=== PATIENT | male | born 1995 | race Caucasian/White ===

== ENCOUNTER 2024-08-03 07:49 | Emergency (ER) | payer BC, MEDICAID ==
[2024-08-03 08:00] VITALS: TEMP 96.8
[2024-08-03] MEDS ORDERED: Lactated Ringers 1,000 ML IV ONE (08:03)
[2024-08-03] MEDS ORDERED: MORPHINE SULFATE 4 MG INJ ONE (08:03)
[2024-08-03] MEDS ORDERED: Zofran 4 MG/2 ML VIAL ONE (08:03)
[2024-08-03] MEDS: MORPHINE SULFATE 4 MG INJ IV ONE (08:06)
[2024-08-03] MEDS: Lactated Ringers 1,000 ML IV ONE (08:06)
[2024-08-03] MEDS: Zofran 4 MG/2 ML VIAL IV ONE (08:07)
[2024-08-03 08:11] LABS: Absolute Neutrophil Ct (ANC) 12.24 x10^3/uL (1.78-5.38); BASOPHIL % 0.3 % (0.2-1.2); Basophil (Absolute #) 0.05 x10^3/uL (0.01-0.08); Eosinophil % 0.1 % (0.8-7.0); Eosinophil (Absolute #) 0.02 x10^3/uL (0.04-0.54); Hematocrit 47.3 % (40.1-51.0); Hemoglobin 16.9 g/dL (13.7-17.5); IMMATURE GRAN # 0.05 x10^3u/L (0.001-0.031); IMMATURE GRAN % 0.3 % (0.001-0.429); Lymphocyte (Absolute #) 2.86 x10^3/uL (1.32-3.57); Lymphocytes % 17.9 % (21.8-53.1); Mean Cell Volume 85.7 fL (79.0-92.2); Mean Corpuscular Hemoglobin 30.6 pg (25.7-32.2); Mean Corpuscular Hgb Concent. 35.7 g/dL (32.3-36.5); Mean Platelet Volume 9.6 fL (9.4-12.4); Monocyte (Absolute #) 0.77 x10^3/uL (0.30-0.82); Monocytes % 4.8 % (5.3-12.2); Neutrophil % 76.6 % (34.0-67.9); Platelet Count 307 x10^3/uL (163-337); Red Blood Count 5.52 x10^6/uL (4.63-6.08); Red Cell Distribution Width 11.7 % (11.6-14.4)
[2024-08-03 08:26] LABS: ALBUMIN 4.5 g/dL (3.5-5.0); ANION GAP 17.9 MEQ/L (5-15); BILIRUBIN,TOTAL 0.9 mg/dL (0.2-1.3); Creatinine 1 1.01 mg/dL (0.66-1.25); EST GLOMERULAR FILTRATION RATE 104.5 ML/MIN; Potassium 3.8 mmol/L (3.5-5.1); Total Protein 7.4 g/dL (6.3-8.2)
--- NOTE | 2024-08-03 08:28 | ERPHSYRPT ---
- History of Present Illness Time Seen by Provider: 08/03/24 08:19 Historian: patient Exam Limitations: no limitations Patient Subjective Stated Complaint: pt here for right sided abd pain started this morning with n/v, no fever, had bm today Triage Nursing Assessment: pt alert, walked in, resp easy. skin w/d/p. abd soft, restless at times, no edema noted Physician History: Patient is 28-year-old male without any significant past medical history came to the emergency room with right lower quadrant abdominal pain which started at around 2:00 in the morning. It gradually got worse that patient came to the emergency room at around 8:00 in the morning. Patient is also complaining of nausea and vomiting but denies any diarrhea and has last regular bowel movement hour ago. Pain is more in cramping nature in right lower quadrant not radiating anywhere. Patient thought that he probably ate something wrong and that might be causing it but his pain started getting worse so he came to the emergency room. Timing/Duration: today Activities at Onset: none Quality: cramping Abdominal Pain Onset Location: RLQ Pain Radiation: no radiation Severity of Pain-Max: moderate Severity of Pain-Current: severe Modifying Factors: Improves With: nothing Associated Symptoms: nausea, vomiting Previous symptoms: no prior history Body Map: 1 - area of pain Allergies/Adverse Reactions: No Known Drug Allergies Allergy (Unverified 08/03/24 07:53) Hx Tetanus, Diphtheria Vaccination/Date Given: No Hx Influenza Vaccination/Date Given: No Hx Pneumococcal Vaccination/Date Given: No Immunizations Up to Date: Yes Travel Risk - International Travel Have you traveled outside of the country in past 3 weeks: No - Emerging Infectious Disease Are you exhibiting symptoms associated with any current EIDs: Yes Symptoms: Abdominal Pain - Review of Systems Constitutional: No Fever, No Chills Eyes: No Symptoms Ears, Nose, & Throat: No Symptoms Respiratory: No Cough, No Dyspnea Cardiac: No Chest Pain, No Edema, No Syncope Abdominal/Gastrointestinal: Abdominal Pain, Nausea, Vomiting, No Diarrhea Genitourinary Symptoms: No Dysuria Musculoskeletal: No Back Pain, No Neck Pain Skin: No Rash Neurological: No Dizziness, No Focal Weakness, No Sensory Changes Psychological: No Symptoms Endocrine: No Symptoms All Other Systems: Reviewed and Negative - Past Medical History Pertinent Past Medical History: No - Past Surgical History Past Surgical History: Yes Other Surgical History: wisdom teeth - Social History Smoking Status: Never smoker Exposure to second hand smoke: No Drug Use: none - Social Determinants of Health Will the patient participate in the screening: Declined to provide - Nursing Vital Signs Nursing Vital Signs: Initial Vital Signs Temperature 96.8 F 08/03/24 07:59 Pulse Rate 72 08/03/24 07:59 Respiratory Rate 18 08/03/24 07:59 Blood Pressure 177/100 08/03/24 07:59 O2 Sat by Pulse Oximetry 99 08/03/24 07:59 Pain Scale Pain Intensity 6 - Physical Exam General Appearance: no apparent distress, alert Eye Exam: PERRL/EOMI, eyes nml inspection Ears, Nose, Throat Exam: normal ENT inspection, pharynx normal, moist mucous membranes Neck Exam: normal inspection, non-tender, supple, full range of motion Respiratory Exam: normal breath sounds, lungs clear, No respiratory distress Cardiovascular Exam: regular rate/rhythm, normal heart sounds Gastrointestinal/Abdomen Exam: soft, tenderness (RLQ), guarding, No mass Male Genitalia Exam: normal genitalia Back Exam: normal inspection, normal range of motion, No CVA tenderness, No vertebral tenderness Extremity Exam: normal inspection, normal range of motion, pelvis stable Neurologic Exam: alert, oriented x 3, cooperative, normal mood/affect, nml cerebellar function, sensation nml, No motor deficits Skin Exam: normal color, warm, dry SpO2 Interpretation: normal SpO2: 99 O2 Delivery: Room Air - Course Nursing assessment & vital signs reviewed: Yes EKG Interpreted by Me: Non-specific ST Changes Rhythm Strip: Normal Sinus Rhythm - CT Exams Abdomen/Pelvis CT Interpretation: Tele-radiologist Report (right mid ureteric stone 5 mm) Ordered Tests: Active Orders 24 hr Category Date Time Status ABDOMEN AND PELVIS W CONTRAST [CT] Stat Exams 08/03/24 08:00 Completed AMYLASE Stat Lab 08/03/24 08:09 Completed CBC W DIFF Stat Lab 08/03/24 08:09 Completed CMP Stat Lab 08/03/24 08:09 Completed CULTURE,URINE Stat Lab 08/03/24 09:34 Received LIPASE Stat Lab 08/03/24 08:09 Completed Lactic Acid Stat Lab 08/03/24 07:59 Completed Lactic Acid Stat Lab 08/03/24 10:36 Received UA W/RFX UR CULTURE Stat Lab 08/03/24 09:34 Completed Urine Triage Profile Stat Lab 08/03/24 09:34 Completed Medication Summary Discontinued Medications Generic Name Dose Route Start Last Admin Trade Name Xochilt PRN Reason Stop Dose Admin Fentanyl Citrate 100 mcg 08/03/24 08:29 08/03/24 08:35 Fentanyl Citrate 100 Mcg/2 Ml* Vial IV 08/03/24 08:30 100 mcg STAT ONE Administration Fentanyl Citrate Confirm 08/03/24 08:34 Fentanyl Citrate 100 Mcg/2 Ml* Vial Administered 08/03/24 08:35 Dose 100 mcg .ROUTE .STK-MED ONE Lactated Ringer's 1,000 mls @ 999 mls/hr 08/03/24 07:59 08/03/24 09:32 Lactated Ringers IV 08/03/24 08:59 Infused .Q1H1M ONE Infusion Lactated Ringer's Confirm 08/03/24 08:03 Lactated Ringers Administered 08/03/24 08:04 Dose 1,000 mls @ ud IV .STK-MED ONE Cefazolin Sodium 2 gm in 100 mls @ 200 mls/hr 08/03/24 08:36 08/03/24 10:10 Cefazolin 2 Gm/100 Ml Nacl IV 08/03/24 09:05 Infused STAT STA Infusion Cefazolin Sodium Confirm 08/03/24 09:05 Cefazolin 2 Gm/100 Ml Nacl Administered 08/03/24 09:06 Dose 2 gm in 100 mls @ ud IV .STK-MED ONE Ketorolac Tromethamine 30 mg 08/03/24 10:38 08/03/24 10:45 Ketorolac Tromethamine 30 Mg/Ml Inj IV 08/03/24 10:39 30 mg STAT ONE Administration Ketorolac Tromethamine Confirm 08/03/24 10:44 Ketorolac Tromethamine 30 Mg/Ml Inj Administered 08/03/24 10:45 Dose 30 mg .ROUTE .STK-MED ONE Morphine Sulfate 4 mg 08/03/24 07:59 08/03/24 08:06 Morphine Sulfate 4 Mg/Ml Injection IV 08/03/24 08:00 4 mg STAT ONE Administration Morphine Sulfate Confirm 08/03/24 08:03 Morphine Sulfate 4 Mg/Ml Injection Administered 08/03/24 08:04 Dose 4 mg .ROUTE .STK-MED ONE Ondansetron HCl 4 mg 08/03/24 07:59 08/03/24 08:07 Ondansetron Hcl 4 Mg/2 Ml Vial IV 08/03/24 08:00 4 mg STAT ONE Administration Ondansetron HCl Confirm 08/03/24 08:03 Ondansetron Hcl 4 Mg/2 Ml Vial Administered 08/03/24 08:04 Dose 4 mg .ROUTE .STK-MED ONE Lab/Rad Data: Laboratory Result Diagrams 08/03/24 08:09 08/03/24 08:09 Laboratory Results 08/03/24 08/03/24 08/03/24 Range/Units 09:34 09:34 08:09 WBC (4.23-9.07) x10^3/uL RBC (4.63-6.08) x10^6/uL Hgb (13.7-17.5) g/dL Hct (40.1-51.0) % MCV (79.0-92.2) fL MCH (25.7-32.2) pg MCHC (32.3-36.5) g/dL RDW (11.6-14.4) % Plt Count (163-337) x10^3/uL MPV (9.4-12.4) fL Gran % (34.0-67.9) % Immature Gran % (Auto) (0.001-0.429) % Nucleat RBC Rel Count (0.00-0.2) % Eos # (Auto) (0.04-0.54) x10^3/uL Immature Gran # (Auto) (0.001-0.031) x10^3u/L Absolute Lymphs (auto) (1.32-3.57) x10^3/uL Absolute Monos (auto) (0.30-0.82) x10^3/uL Absolute Nucleated RBC (0.00-0.012) x10^3u/L Lymphocytes % (21.8-53.1) % Monocytes % (5.3-12.2) % Eosinophils % (0.8-7.0) % Basophils % (0.2-1.2) % Absolute Granulocytes (1.78-5.38) x10^3/uL Basophils # (0.01-0.08) x10^3/uL Sodium 141 (135-145) mmol/L Potassium 3.8 (3.5-5.1) mmol/L Chloride 106 (98-107) mmol/L Carbon Dioxide 21 L (22-30) mmol/L Anion Gap 17.9 H (5-15) MEQ/L BUN 18 (9-20) mg/dL Creatinine 1.01 (0.66-1.25) mg/dL Estimated GFR 104.5 ML/MIN Glucose 164 H (74-106) mg/dL Lactic Acid (0.4-2.0) Calcium 10.0 (8.4-10.2) mg/dL Total Bilirubin 0.90 (0.2-1.3) mg/dL AST 86 H (17-59) U/L ALT 149 H (0-50) U/L Alkaline Phosphatase 120 (38-126) U/L Serum Total Protein 7.4 (6.3-8.2) g/dL Albumin 4.5 (3.5-5.0) g/dL Amylase 67 (30-110) U/L Lipase 149 (23-300) U/L Urine Color Yellow (Yellow) Urine Appearance Clear (Clear) Urine pH 6.5 (4.6-8.0) Ur Specific [place] >=1.030 A (1.005-1.030) Urine Protein Negative (Negative) Urine Glucose (UA) 250 A (Negative) mg/dL Urine Ketones 40 A (Negative) Urine Blood Large A (Negative) Urine Nitrite Negative (Negative) Urine Bilirubin Negative (Negative) Urine Urobilinogen 0.2 (0.2) mg/dL Ur Leukocyte Esterase Negative (Negative) U Hyaline Cast (Auto) NONE SEEN (0-2) /LPF Urine Microscopic RBC 21-50 A (0-5) /HPF Urine Microscopic WBC 0-2 (0-5) /HPF Ur Epithelial Cells None Seen (None Seen) /HPF Urine Bacteria None Seen (None Seen) /HPF Urine Culture Reflexed YES (NO) Urine Opiates Level POSITIVE A (NEGATIVE) Ur Methadone NEGATIVE (NEGATIVE) Urine Barbiturates NEGATIVE (NEGATIVE) Ur Phencyclidine (PCP) NEGATIVE (NEGATIVE) Urine Amphetamine NEGATIVE (NEGATIVE) U Benzodiazepine Level NEGATIVE (NEGATIVE) Urine Cocaine NEGATIVE (NEGATIVE) Urine Marijuana (THC) NEGATIVE (NEGATIVE) 08/03/24 08/03/24 Range/Units 08:09 07:59 WBC 16.0 H (4.23-9.07) x10^3/uL RBC 5.52 (4.63-6.08) x10^6/uL Hgb 16.9 (13.7-17.5) g/dL Hct 47.3 (40.1-51.0) % MCV 85.7 (79.0-92.2) fL MCH 30.6 (25.7-32.2) pg MCHC 35.7 (32.3-36.5) g/dL RDW 11.7 (11.6-14.4) % Plt Count 307 (163-337) x10^3/uL MPV 9.6 (9.4-12.4) fL Gran % 76.6 H (34.0-67.9) % Immature Gran % (Auto) 0.3 (0.001-0.429) % Nucleat RBC Rel Count 0.0 (0.00-0.2) % Eos # (Auto) 0.02 L (0.04-0.54) x10^3/uL Immature Gran # (Auto) 0.05 H (0.001-0.031) x10^3u/L Absolute Lymphs (auto) 2.86 (1.32-3.57) x10^3/uL Absolute Monos (auto) 0.77 (0.30-0.82) x10^3/uL Absolute Nucleated RBC 0.00 (0.00-0.012) x10^3u/L Lymphocytes % 17.9 L (21.8-53.1) % Monocytes % 4.8 L (5.3-12.2) % Eosinophils % 0.1 L (0.8-7.0) % Basophils % 0.3 (0.2-1.2) % Absolute Granulocytes 12.24 H (1.78-5.38) x10^3/uL Basophils # 0.05 (0.01-0.08) x10^3/uL Sodium (135-145) mmol/L Potassium (3.5-5.1) mmol/L Chloride (98-107) mmol/L Carbon Dioxide (22-30) mmol/L Anion Gap (5-15) MEQ/L BUN (9-20) mg/dL Creatinine (0.66-1.25) mg/dL Estimated GFR ML/MIN Glucose (74-106) mg/dL Lactic Acid 3.0 H (0.4-2.0) Calcium (8.4-10.2) mg/dL Total Bilirubin (0.2-1.3) mg/dL AST (17-59) U/L ALT (0-50) U/L Alkaline Phosphatase (38-126) U/L Serum Total Protein (6.3-8.2) g/dL Albumin (3.5-5.0) g/dL Amylase (30-110) U/L Lipase (23-300) U/L Urine Color (Yellow) Urine Appearance (Clear) Urine pH (4.6-8.0) Ur Specific [place] (1.005-1.030) Urine Protein (Negative) Urine Glucose (UA) (Negative) mg/dL Urine Ketones (Negative) Urine Blood (Negative) Urine Nitrite (Negative) Urine Bilirubin (Negative) Urine Urobilinogen (0.2) mg/dL Ur Leukocyte Esterase (Negative) U Hyaline Cast (Auto) (0-2) /LPF Urine Microscopic RBC (0-5) /HPF Urine Microscopic WBC (0-5) /HPF Ur Epithelial Cells (None Seen) /HPF Urine Bacteria (None Seen) /HPF Urine Culture Reflexed (NO) Urine Opiates Level (NEGATIVE) Ur Methadone (NEGATIVE) Urine Barbiturates (NEGATIVE) Ur Phencyclidine (PCP) (NEGATIVE) Urine Amphetamine (NEGATIVE) U Benzodiazepine Level (NEGATIVE) Urine Cocaine (NEGATIVE) Urine Marijuana (THC) (NEGATIVE) CLINICAL HISTORY: Right lower quadrant abdominal pain COMPARISON: None. TECHNIQUE: Contrast-enhanced CT of the abdomen and pelvis was performed, with the following protocol: axial images with, and reconstructed coronal and sagittal images. Intravenous contrast was administered. One of the following dose reduction techniques was utilized for this exam: Automated exposure control, adjustment of the mA and/or kV according to patient size, and use of iterative reconstruction. FINDINGS: Abdomen: Liver: Enlarged liver, measures 18.7 cm, with fatty parenchyma. No focal lesions, cysts, or masses were identified. Hepatic vasculature and biliary ducts are unremarkable. Gallbladder and Biliary System: The gallbladder is normal in size and shape. No wall thickening, pericholecystic fluid, or gallstones were identified. The common bile duct is normal in caliber without dilation. Pancreas: PatientID: [id number] Patient Name: DMITRY LUNDBERG Exam Date: 08/03/2024 Procedure: ABDOMEN AND PELVIS W CONTRAST page 1 of 3 Pancreatic head, body, and tail are visualized and appear normal in size and density. No pancreatic masses or calcifications were noted. The pancreatic duct is not dilated. Spleen: Normal in size, shape, and density. No splenic lesions or masses were identified. Kidneys and Adrenal Glands: Obstructive calculus of 5 mm size (HU 450) in right mid ureter at L3 vertebral level and causing upstream mild hydroureteronephrosis. Mild periureteric fat stranding seen. Both kidneys are normal in size, shape, and position. Cortical thickness is within normal limits. No renal calculi. Adrenal glands are unremarkable with no evidence of masses or hyperplasia. Pelvis: Urinary Bladder: Normal in contour and wall thickness. No intraluminal lesions identified. Prostate: Normal in size and contour. No focal lesions or masses identified. Seminal Vesicles: Normal in size and appearance. No abnormalities noted. Rectum and Sigmoid Colon: Normal wall thickness and no evidence of mass. Few diverticulae in sigmoid colon. No surrounding inflammation. Peritoneal and Retroperitoneal Structures: No free fluid or abnormal fluid collections were identified within the abdomen or pelvis. No lymphadenopathy was noted. Bowel: The visualized bowel loops are normal in caliber and appearance. No evidence of bowel obstruction or wall thickening. Appendix normal in caliber. Bones and Soft Tissues: Small fat containing umbilical hernia. Pelvic bones and soft tissues are unremarkable. No fractures or abnormal masses were identified. IMPRESSION: Fatty hepatomegaly. Obstructive calculus of 5 mm size (HU 450) in right mid ureter and causing upstream mild hydroureteronephrosis. - Progress Progress: unchanged Progress Note: 08/03/24 10:[address] abdomen and pelvis showed right mid ureteric 5 mm stone with up further reflux. We do not have a urology service available in [facility] as well as [facility] as well as [facility]. We are trying to get in touch with urology service in [place] or [facility] [place] or [facility] in [facility]. Patient and his family made aware of situation. 08/03/24 10:38 I talked to the urologist at [facility]. They are advised patient to be given IV Toradol 30 mg as well as start him on Flomax and they will follow-up with him as an outpatient. I discussed my concern about possibility of the s tone may not pass because of the size which is around 5 mm. But the states that with their experience most likely he will be able to pass and they can see him as an outpatient clinic dr Connolly on Monday. Message is delivered to patient and his family. 08/03/24 10:52 Counseled pt/family regarding: lab results, diagnosis, need for follow-up, rad results Medical Desision Making - Independent Historian Additional History obtained from: Mother, Family - Discussion of managment Reviewed:: Test results, Need for additional workup - Diagnostic Testing Diagnostic test were ordered, analyzed, and reviewed by me: Yes Radiological Interpretation: Interpreted by me, Reviewed by me, Teleradiologist Report - Risk of complications The pt has a mod risk of morbidity or mortality based on: Need for minor surgical intervention in patient with know risk factors - Departure Departure Disposition: Home Clinical Impression: Right ureteral calculus Condition: Stable Critical Care Time: No Referrals: DOCTOR,NO FAMILY [Primary Care Provider] - Follow up/PCP as directed Instructions: Kidney stones in adults, Ureteroscopy, Lithotripsy for kidney stones Additional Instructions: Patient is advised to follow-up with Dr. Mckeon at [facility] urology clinic on Monday. Discharge/Care Plan DMITRY LUNDBERG was seen on 08/03/24 in the Emergency Room. The patient was counseled regarding Diagnosis,Lab results, Imaging studies, need for follow up and when to return to the Emergency Room. Prescriptions given: Discharge Note I have spoken with the patient and/or caregivers. I have explained the patient's condition, diagnosis and treatment plan based on the information available to me at this time. I have answered the patient's and/or caregiver's questions and addressed any concerns. The patient and/or caregivers have as good understanding of the patient's diagnosis, condition and treatment plan as can be expected at this point. The vital signs have been stable. The patient's condition is stable and appropriate for discharge from the emergency department. The patient will pursue further outpatient evaluation with the primary care physician or other designated or consulting physician as outlined in the discharge instructions. The patient and/or caregivers are agreeable to this plan of care and follow-up instructions have been explained in detail. The patient and/or caregivers have received these instruction. The patient/and or caregivers are aware that any significant change in condition or worsening of symptoms should prompt an immediate return to this or the closest emergency department or call 911. DMITRY LUNDBERG was seen on 08/03/24 n the Emergency Room. At that time you were treated for an emergent condition, during your visit Laboratory, Radiology and/or other procedures may have been ordered. It is very important that you follow-up with your Primary Care Physician NO FAMILY DOCTOR within the next 24- 48 hours to review your Emergency Room visit and the final results of testing that was ordered. Some test results such as Urine Cultures, Blood Cultures, and other cultures if ordered will not be finalized for 24-48 hours. If you do not have a Primary Care Provider please call the medical records department at [phone] ext [phone] to obtain a copy of your results or you may sign into our patient portal to obtain these results by visiting us @ [email or web address] and completing the following steps: 1. Click on the Patient Portal link 2. Click the Patient Self Enrollment Link to complete the enrollment form and entering your 3. Once the enrollment form is completed you will receive an email with a tempo rary ID and password at the email address you provided. 4. Next choose a user name and password. Your user name must be at least 4 characters long and your password must be at least 4 characters long. 5. Choose a security question from the list and provide your answer to the question. If you already have signed into the Health Portal you may access your Health Care Information 17/04 by the following steps: 1. Login to our website @ [email or web address] 2. Enter your original user name and password. FAQS The [facility] Health Portal is an online tool that contains your Lab Results, Radiology Reports, Visit History, Discharge Instructions and Health Summary Lab and Radiology Results will not be available for 72 hours on the portal. The Portal is a secure site, passwords are encryted and URLs are re-written so they cannot be copied and pasted. You and authorized family members are the only ones who can access your Portal. Also there is a timeout feature that protects your information if you leave the Portal page open. If you have technical difficulty please use the Contact Us link on the page this will allow you to submit any questions you have regarding the Portal or you may contact the Medical Record Department at [phone]. Prescriptions: Tamsulosin HCl 0.4 mg [Flomax 0.4 MG] 0.4 mg PO DAILY #30 cap Ketorolac Trometh 10 mg Tab [TORAdol 10 MG TABLET] 10 mg PO TID #20 tablet
[2024-08-03] MEDS ORDERED: SUBLIMAZE 100 MCG/2 ML ONE (08:34)
[2024-08-03] MEDS: SUBLIMAZE 100 MCG/2 ML IV ONE (08:35)
[2024-08-03] MEDS ORDERED: CEFAZOLIN 2 GM/100 ML NaCl 2 GM/100 ML IVPB IV ONE (09:05)
[2024-08-03] MEDS: CEFAZOLIN 2 GM/100 ML NaCl 2 GM/100 ML IVPB IV STA (09:06)
--- NOTE | 2024-08-03 09:40 | XRAY ---
CLINICAL HISTORY: Right lower quadrant abdominal pain COMPARISON: None. TECHNIQUE: Contrast-enhanced CT of the abdomen and pelvis was performed, with the following protocol: axial images with, and reconstructed coronal and sagittal images. Intravenous contrast was administered. One of the following dose reduction techniques was utilized for this exam: Automated exposure control, adjustment of the mA and/or kV according to patient size, and use of iterative reconstruction. FINDINGS: Abdomen: Liver: Enlarged liver, measures 18.7 cm, with fatty parenchyma. No focal lesions, cysts, or masses were identified. Hepatic vasculature and biliary ducts are unremarkable. Gallbladder and Biliary System: The gallbladder is normal in size and shape. No wall thickening, pericholecystic fluid, or gallstones were identified. The common bile duct is normal in caliber without dilation. Pancreas: Pancreatic head, body, and tail are visualized and appear normal in size and density. No pancreatic masses or calcifications were noted. The pancreatic duct is not dilated. Spleen: Normal in size, shape, and density. No splenic lesions or masses were identified. Kidneys and Adrenal Glands: Obstructive calculus of 5 mm size (HU 450) in right mid ureter at L3 vertebral level and causing upstream mild hydroureteronephrosis. Mild periureteric fat stranding seen. Both kidneys are normal in size, shape, and position. Cortical thickness is within normal limits. No renal calculi. Adrenal glands are unremarkable with no evidence of masses or hyperplasia. Pelvis: Urinary Bladder: Normal in contour and wall thickness. No intraluminal lesions identified. Prostate: Normal in size and contour. No focal lesions or masses identified. Seminal Vesicles: Normal in size and appearance. No abnormalities noted. Rectum and Sigmoid Colon: Normal wall thickness and no evidence of mass. Few diverticulae in sigmoid colon. No surrounding inflammation. Peritoneal and Retroperitoneal Structures: No free fluid or abnormal fluid collections were identified within the abdomen or pelvis. No lymphadenopathy was noted. Bowel: The visualized bowel loops are normal in caliber and appearance. No evidence of bowel obstruction or wall thickening. Appendix normal in caliber. Bones and Soft Tissues: Small fat containing umbilical hernia. Pelvic bones and soft tissues are unremarkable. No fractures or abnormal masses were identified. IMPRESSION: Fatty hepatomegaly. Obstructive calculus of 5 mm size (HU 450) in right mid ureter and causing upstream mild hydroureteronephrosis. Electronically Signed by: Redd Santo MD. (08/03/2024 09:36:11 EST)
[2024-08-03 09:42] LABS: Appearance Clear (Clear); Bacteria None Seen /HPF (None Seen); Bilirubin Negative (Negative); Blood Large (Negative); Epithelial Cells None Seen /HPF (None Seen); Glucose, Urine 250 mg/dL (Negative); Hyaline Casts NONE SEEN /LPF (0-2); Ketones 40 (Negative); Leukocyte Esterase Negative (Negative); Nitrite Negative (Negative); Ph 6.5 (4.6-8.0); Protein,Urine Dip Negative (Negative); RBC 21-50 /HPF (0-5); Specific Gravity >=1.030 (1.005-1.030); Urobilinogen 0.2 mg/dL (0.2); WBC 0-2 /HPF (0-5)
[2024-08-03 09:56] LABS: Amphetamine,Urine NEGATIVE (NEGATIVE); Barbiturate,Urine NEGATIVE (NEGATIVE); Benzodiazepine,Urine NEGATIVE (NEGATIVE); Cocaine,Urine NEGATIVE (NEGATIVE); Methadone,Urine NEGATIVE (NEGATIVE); Opiate,Urine POSITIVE (NEGATIVE); PCP,Urine NEGATIVE (NEGATIVE); THC,Urine NEGATIVE (NEGATIVE)
[2024-08-03] MEDS ORDERED: TORAdol 30 mg Injection ONE (10:44)
[2024-08-03] MEDS: TORAdol 30 mg Injection IV ONE (10:45)
[2024-08-03 11:12] VITALS: BP 122/67
[2024-08-03 11:13] VITALS: PULSE 78; RESP 16; O2SAT 98
== END 2024-08-03 11:05 | disposition home or self-care (01) ==
LOC: EDSEX 07:49 → ED 07:49
DX: N13.2 Hydronephrosis with renal and ureteral calculous obstruction (principal); R10.31 Right lower quadrant pain; R11.2 Nausea with vomiting, unspecified; Z79.899 Other long term (current) drug therapy
CPT/HCPCS: 36415; 74177; 80053; 80307; 81001; 82150; 83605; 83690; 85025; 87086; 96360; 96365; 96374; 96375; 99284; 99285; J0690; J1885; J2270; J2405; J3010